=== PATIENT | female | born 1940 | race Caucasian/White ===

== ENCOUNTER 2017-08-24 14:16 | Day surgery (SDC) | payer MEDICARE, MEDICAID ==
--- NOTE | 2017-08-24 07:53 | History and Physical Report ---
DATE: 08/23/2017. CHIEF COMPLAINT AND HISTORY OF CHIEF COMPLAINT: This is a patient with a history of an intractable radiculopathy. She had a previous spinal opioid infusion system removed because of a pouch infection after appropriate management there was a period of approximately a year and a half. The patient is here by her request for replacement of the system. PAST MEDICAL HISTORY: Chronic bronchitis, sleep apnea, hypertension, gastrointestinal reflux, hypothyroidism, anemia. PAST SURGICAL HISTORY: Pump implant, postlaminectomy. MEDICATIONS ON ADMISSION: To be provided. ALLERGIES: Ambien, antibiotics, amoxicillin. PHYSICAL EXAMINATION: General: Height and weight are unknown. Vital Signs: Unavailable. HEENT: Within normal limits. Lungs: Clear. Heart: Regular rate and rhythm. Abdomen: Nontender. Musculoskeletal: Examination of the musculoskeletal system shows pain and tenderness throughout the lumbar spine. Range of motion produces pain into the low back. Ambulation: Assistive device utilized. Neurologic: Cranial nerves are intact. IMPRESSION: RADICULOPATHY, ICD-10 CODE M54.16 AND M54.17. PLAN: The original pump pouch on the right will not be utilized. We will place the new system to the left with the new catheter and pump. The previous medication was morphine, and we will be using hydromorphone to be started at the basic rate. The potential risks, side effects, and complications have all been carefully reviewed and discussed. Because of the possibility of a suture reaction, we will use richie to close the skin with a normal subcutaneous closure. All of the potential risks, side effects, and complications have been carefully reviewed and discussed. The patient understands and has agreed. Nerve root injury, spinal cord injury, paralysis, and potential spinal headache have all been discussed. She understands and has agreed. We will consider this possibly outpatient, although an overnight stay will be recommended if any complications occur. All other instructions were provided and numbers to contact have been given. Everything was explained. JOB NUMBER: [id number] cc: Primary Care Physician REGAN
[~2017-08-24 14:16] MED LIST: ACETAMINOPHEN 1,000 MG/100 ML BTL IV ONE; CLINDAMYCIN 600MG/50ML PREMIX 600 MG/50 ML BAG IVPB ONE; FAMOTIDINE 20MG TABLET PO ONE; HYDROMORPHONE HCL 0.04 GM in 0.9 % SODIUM CHLORIDE 10ML VIA 20 ML IV ONE; HYDROMORPHONE PF 2MG/ML AMP 0.004 MG in 0.9 % SODIUM CHLORIDE 10ML VIA 0.998 ML IV ONE; MECLIZINE 25 MG TABLET PO ONE; METOCLOPRAMIDE 10 MG TABLET PO ONE
[2017-08-24] MEDS ORDERED: HYDROMORPHONE HCL 2 MG/ML VIAL IV ONE (14:17)
[2017-08-24] MEDS ORDERED: CLINDAMYCIN (PEDIATRIC DOSING) 150 MG/ML VIAL IVPB ONE (14:17)
[2017-08-24] MEDS ORDERED: BUPIVACAINE 0.5% W/EPI MPF 30 ML VIAL IVP ONE (14:17)
[2017-08-24] MEDS ORDERED: MORPHINE SULFATE 5 MG/ML PFS IVP ONE (14:17)
[2017-08-24] MEDS ORDERED: MIDAZOLAM HCL 2MG/2ML VIAL IV ONE (14:17)
[2017-08-24] MEDS ORDERED: LIDOCAINE 1% W/EPI 1:200,000 MPF 30ML SQ ONE (14:17)
[2017-08-24] MEDS ORDERED: LIDOCAINE 2% MDV (20MG/ML) 20ML VIAL IV ONE (14:17)
[2017-08-24] MEDS ORDERED: FENTANYL PF 100MCG/2ML VIAL IV ONE (14:17)
[2017-08-24] MEDS ORDERED: PROPOFOL 10 MG/ML VIAL IV ONE (14:17)
[2017-08-24] MEDS ORDERED: DIPHENHYDRAMINE HCL 25 MG CAPSULE PO PRN ×2 (18:06)
[2017-08-24] MEDS ORDERED: HYDROCODONE/APAP 7.5/325MG TABLET PO PRN (18:06)
[2017-08-24] MEDS ORDERED: SENNOSIDES/DOCUSATE SODIUM UD CAPSULE PO PRN ×2 (18:06)
[2017-08-24] MEDS ORDERED: DIPHENHYDRAMINE HCL 50 MG/ML VIAL IVP PRN ×2 (18:06)
[2017-08-24] MEDS ORDERED: AL HYDROX/MAG HYDROX 30ML UD PO PRN (18:06)
[2017-08-24] MEDS ORDERED: HYDROMORPHONE HCL 2 MG/ML VIAL IM PRN ×2 (18:06)
[2017-08-24] MEDS ORDERED: ACETAMINOPHEN 325 MG TAB PO PRN ×2 (18:06)
[2017-08-24] MEDS ORDERED: METOCLOPRAMIDE HCL 10 MG/2 ML VIAL IVP PRN (18:06)
[2017-08-24] MEDS ORDERED: TEMAZEPAM 15 MG CAPSULE PO PRN ×2 (18:06)
[2017-08-24] MEDS ORDERED: METOCLOPRAMIDE 10 MG TABLET PO PRN (18:06)
[2017-08-24] MEDS ORDERED: NALOXONE 0.4 MG/1 ML VIAL IVP PRN (18:06)
[2017-08-24] MEDS ORDERED: OXYCODONE/APAP 10MG-325MG TABLET PO PRN ×2 (18:06)
[2017-08-24] MEDS: RINGERS SOLUTION,LACTATED 1,000 ML IV SCH (18:35)
[2017-08-24] MEDS: BYSTOLIC 20 MG PO SCH (21:54)
[2017-08-24] MEDS: GABAPENTIN 100 MG PO SCH (21:56)
[2017-08-24] MEDS: PATIENT OWN MED: POTASSIUM 20 MEQ PO SCH (21:57)
[2017-08-24] MEDS ORDERED: BUMETANIDE 1 MG PO SCH (22:00)
[2017-08-24] MEDS ORDERED: PATIENT OWN MED: OMEPRAZOLE 40 MG PO SCH (22:00)
[2017-08-24] MEDS ORDERED: DILTIAZEM 240 MG PO SCH (22:00)
[2017-08-25] MEDS: CLINDAMYCIN 600MG/50ML PREMIX 600 MG/50 ML BAG IVPB SCH ×2 (00:52→08:33)
[2017-08-25] MEDS: HYDROCODONE/APAP 7.5/325MG TABLET PO PRN ×2 (01:59→06:40)
[2017-08-25] MEDS: RINGERS SOLUTION,LACTATED 1,000 ML IV SCH (03:00)
[2017-08-25] MEDS ORDERED: PATIENT OWN MED: LEVOTHYROXINE 25 MCG PO SCH (07:00)
[2017-08-25] MEDS ORDERED: PATIENT OWN MED: SERTRALINE 50 MG PO SCH (10:00)
[2017-08-25] MEDS ORDERED: ALBUTEROL INH SCH (10:00)
[2017-08-25] MEDS: BYSTOLIC 20 MG PO SCH (10:12)
[2017-08-25] MEDS: GABAPENTIN 100 MG PO SCH (10:13)
[2017-08-25] MEDS: PATIENT OWN MED: POTASSIUM 20 MEQ PO SCH (10:13)
--- NOTE | 2017-08-26 08:52 | RADIOLOGY REPORT ---
EXAM: AP THORACOLUMBAR SPINE HISTORY: PAIN PUMP IMPLANT. TECHNIQUE: A single AP view of the thoracic and lumbar spines was obtained. Comparison: AP spine 07/09/09. FINDINGS: Previously seen battery pack overlying the left lower quadrant no longer present with now a battery pack overlying the right lower quadrant. Small caliber catheter extending from this overlies the lower lumbar spine and the ascends up to the level of what is either T12 with tiny twelfth ribs or L1 with tiny riblets. There is a lower thoracic levoscoliosis and a lumbar dextroscoliosis. Prominent degenerative change at multiple levels in the lumbar spine. Skin type richie overlying the lower lumbar spine and overlying the battery pack in the right lower quadrant. IMPRESSION: 1. BATTERY PACK RIGHT LOWER QUADRANT WITH ASSOCIATED CATHETER EXTENDING UP TO A SOMEWHAT TRANSITIONAL VERTEBRA EITHER T12 OR L1 DESCRIBED ABOVE. 2. THORACOLUMBAR SCOLIOSIS. JOB NUMBER: [id number] MTDD
--- NOTE | 2017-08-27 00:25 | Operative Note - Ferro ---
DATE OF SURGERY: 08/24/17 PREOPERATIVE DIAGNOSIS: POST LAMINECTOMY SYNDROME, ICD-10 CODE = M96.1 WITH LUMBAR RADICULOPATHY, ICD- 10 CODE = M54.16 AND M54.17. SURGERY: 1. FLUOROSCOPIC-GUIDED ACCESS SPINAL SPACE AT L3-4 WITH PLACEMENT OF THIN- WALLED SPINAL CATHETER T12-L1. 2. DIAGNOSTIC MYELOGRAPHY WITH RADIOLOGIC SUPERVISION AND INTERPRETATION. 3. SPINAL OPIOID BOLUS HYDROMORPHONE 0.001 MG SPINAL SPACE. 4. INCISION, SUBCUTANEOUS DISSECTION, AND ANCHORING OF SPINAL CATHETER TO SUPRASPINOUS FASCIA WITH AN ANCHORING DEVICE AND NONABSORBABLE SUTURE. 5. INCISION, SUBCUTANEOUS DISSECTION, AND CREATION OF SUBCUTANEOUS POUCH AT RIGHT POSTERIOR GLUTEAL MARGIN FOR PLACEMENT OF PUMP IDENTIFIED A [employer] 20 ML PROGRAMMABLE PREFILLED HYDROMORPHONE 0.2 MG PER ML. 6. TUNNELING BETWEEN SPINAL CATHETER POUCH AND PUMP POUCH PLACING SPINAL CATHETER INTO PUMP POUCH, RESECT AND INTERFACE SPINAL CATHETER WITH SECOND CATHETER COMPONENT BY WAY OF CONNECTOR, SECOND CATHETER COMPONENT INTERFACED TO PUMP. 7. PLACEMENT OF PUMP INTO POUCH SECURING TO POSTERIOR FASCIA WITH NONABSORBABLE SUTURE AT THREE POINTS, PUMP EYELETS. PLACEMENT OF SPINAL CATHETER INTO POUCH. CLOSURE OF INCISIONS WITH VICRYL FOR FASCIA AND RUNNING SUBCUTICULAR VICRYL FOR SKIN. DERMABOND CLOSURE. 8. PLACEMENT OF CURVED #24 GAUGE FERNANDEZ NEEDLE INTO ACCESS PORT ASPIRATING CSF CONFIRMING FUNCTION, CONTRAST INJECTED, SECOND MYELOGRAM CONFIRMING FUNCTIONALITY OF PUMP/CATHETER COMBINATION. TIP OF CATHETER IDENTIFIED T12-L1. 9. COMPLEX PROGRAMMING OF PUMP TO DELIVER BY CONTINUOUS INFUSION HYDROMORPHONE AT 0.03 MG A DAY. SURGEON: BOB IBARRA D.O. ANESTHESIA: LOCAL SEDATION. ANESTHESIA PROVIDER: THOMAS BENÍTEZ CRNA INDICATION: This patient presents with a history of an intractable post laminectomy radiculopathy. Her diagnostic studies showed decompression of laminectomy 3-4 to 5-1, moderately severe rotoscoliosis with convexity to the right with extensive degenerative disease. A previous pump removed from the left because of pouch infection. She has been cleared, free of infection, and is here for re-implantation on the opposite side. SURGERY: Intravenous line, vital sign monitoring, IV sedation, prepped and draped in sterile technique, patient positioned prone. Sterile prep, sterile technique. The spinal interspace at L3-4 was marked, infiltrated, and a #20 gauge spinal needle using a paramedian approach beveled with a long axis into the spinal space. This under AP and lateral imaging. With CSF flow through the needle, spinal catheter was advanced and positioned at T12-L1. Skin above and below the needle infiltrated, incision made and subcutaneous dissection was conducted to the supraspinous fascia. Needle removed and then the catheter was anchored to the supraspinous fascia with an anchoring device and nonabsorbable suture. CSF was still noted coming through the catheter. Diagnostic myelography was then performed. The resulting flow characteristics were smooth and linear in the space. Appropriate flow characteristics noted. With this confirmation, a bolus of Hydromorphone 0.001 mg given in the spinal space. Catheter was clamped to stop CSF leak. At the right posterior gluteal margin, a site picked by the patient, skin infiltrated, incision made and subcutaneous dissection was conducted to form a small pouch of suitable size and depth for the pump identified as a [employer] 20 mL programmable. The pump placed onto the field prefilled Hydromorphone at 0.2 mg per mL. The pouch for the pump at the right posterior gluteal margin, incision made and subcutaneous dissection was conducted to perform a pouch of suitable size and depth. Antibiotic irrigation and Bovie for hemostasis. A tunneling tool was used to carry the spinal catheter to the pump pouch. The spinal catheter was then interfaced and resected with a second catheter component by way of a connector. This revised second catheter component was interfaced to the pump. The pump was placed into the pouch and secured to the posterior fascia with nonabsorbable suture at three points, pump eyelets. A #24 gauge Fernandez needle was inserted into the access port. 1 mL of catheter contents was aspirated clearing the catheter of opioid and any CSF mixture. Contrast was then injected. A repeat myelogram confirming patency, functionality, and interface appropriately made between the pump catheter, catheter tip at T12-L1 confirmed. Myelogram flow characteristics confirmed. The incisions were closed with Vicryl for fascia and richie for skin. Appropriate dressings placed over the richie. The pump was then programmed to deliver by continuous infusion Hydromorphone at 0.03 mg a day. She was transported to the Recovery Room stable. No side-effects from the procedure or the sedation. She will be transported to the Floor, monitored overnight and discharged in the morning. DISCHARGE INSTRUCTIONS: 1. The sites are to remain clean and dry. No showering or bathing in any way that would disrupt dressings. If it happens, contact the clinic. 2. Standard medications resumed, including Levaquin, the antibiotic, 500 mg once a day for 14 days. 3. Spinal opioid side-effects including respiratory depression, nausea, vomiting, constipation, urinary retention, lightheadedness or rash have all been discussed and reviewed. Should they happen, contact the clinic. All other instructions provided, numbers to contact if problems given. She will be discharged in the morning. She was demonstrating conversation skills, full functionality of all extremities in the Recovery Room. cc: Dr. Rossy Correa JOB NUMBER: [id number] MTDD
== END 2017-08-25 14:30 | disposition home or self-care (01) ==
LOC: SUR 14:16 → MEDSURG 18:38 → SUR 08-25 14:30
PROVIDERS: ATTEND Pain Medicine Interventional Pain Medicine
DX: M96.1 Postlaminectomy syndrome, not elsewhere classified (principal); M54.16 Radiculopathy, lumbar region; M54.17 Radiculopathy, lumbosacral region; I10 Essential (primary) hypertension; I48.91 Unspecified atrial fibrillation; J44.9 Chronic obstructive pulmonary disease, unspecified; D64.9 Anemia, unspecified; G47.33 Obstructive sleep apnea (adult) (pediatric); Z79.01 Long term (current) use of anticoagulants; E03.9 Hypothyroidism, unspecified
CPT/HCPCS: 62367; 72020; 85002; J1170; J7120